=== PATIENT | male | born 1985 | race Caucasian/White ===

== ENCOUNTER 2020-03-25 12:50 | Emergency (ER) | payer OTHER ==
[~2020-03-25] VITALS: Ht 162.6 cm; Wt 60.0 kg
[2020-03-25] MEDS ORDERED: ONDANSETRON HCL 4MG/2ML INJ IV ONE (13:15)
[2020-03-25 14:07] LABS: HEMATOCRIT. 32.6 % (42.0-52.0); HEMOGLOBIN. 10.7 g/dL (14.0-18.0); MEAN CORPUSCULAR VOLUME 82.7 fL (80.0-94.0); MEAN PLATELET VOLUME 6.4 fl (7.4-10.4); PLATELET 214 x1000/uL (130-400); RED BLOOD CELL COUNT 3.94 mill/uL (4.7-6.1); RED CELL DISTRIBUTION WIDTH 19.7 % (11.6-14.6)
[2020-03-25 14:10] LABS: CHLORIDE 101 mEq/L (98-107)
[2020-03-25 14:11] LABS: INR 1.3; PARTIAL THROMBOPLASTIN TIME 32.4 sec (23.4-31.0); PROTHROMBIN TIME 13.2 sec (9.6-11.0)
[2020-03-25 14:35] LABS: PLATELET ESTIMATE NORMAL
[2020-03-25] MEDS ORDERED: MECLIZINE 25MG TABLET PO ONE (15:30)
[2020-03-25 16:57] VITALS: BP 157/86
== END 2020-03-25 17:31 | disposition short-term general hospital (02) ==
LOC: ER 12:50 → EDBEDREQTM 14:06 → EDBEDREQ 14:06 → ER 17:31 → CANBEDREQ 19:28
DX: I16.0 Hypertensive urgency (principal); I12.0 Hypertensive chronic kidney disease with stage 5 chronic kidney disease or end stage renal disease; N18.6 End stage renal disease; Z99.2 Dependence on renal dialysis; R42 Dizziness and giddiness; R11.2 Nausea with vomiting, unspecified
CPT/HCPCS: 36415; 70450; 71045; 80053; 83690; 84484; 85025; 85610; 85730; 86850; 86900; 86901; 93005; 96374; 99285; J2405; J8597